=== PATIENT | female | born 1955 | race Caucasian/White ===

== ENCOUNTER 2021-01-15 16:52 | Outpatient (CLI) | payer MEDICARE, SELFPAY ==
--- NOTE | ~2021-01-15 | MR_ITS ---
EXAMINATION: MR knee LT wo con DATE: 01/15/2021 17:44 INDICATION: Left knee pain TECHNIQUE: Magnetic resonance imaging (MRI) of the left knee was performed without intravenous contra st. Sequences included coronal PD-weighted FSE, coronal PD-weighted FS FSE, sagittal T2-weighted FSE , sagittal PD-weighted FS FSE and axial PD weighted fat saturated FSE. COMPARISON: None. FINDINGS: Medial compartment: Medial meniscus is normal. Partial-thickness chondral ulceration and deep fissuring at the central we ightbearing medial femoral condyle with mild underlying subarticular edema. Cartilage at the medial t ibial plateau is relatively preserved. Lateral compartment: Lateral meniscus is normal. Partial-thickness chondral fissure at the central aspect of the lateral t ibial plateau. Partial thickness cartilage loss with smooth chondral surface along the lateral margin of the weightbearing lateral femoral condyle with small focus of subarticular edema anteriorly. Patellofemoral compartment: Partial-thickness chondral ulceration and deep fissuring along the patellar apical ridge and lateral side of the medial patellar facet with a couple tiny foci of subarticular edema. Deep fissuring with mild underlying cortical irregularity at the inferomedial aspect of the medial trochlea. Ligaments and tendons: Anterior and posterior cruciate ligaments are normal. The medial collateral ligament and fibular justin ateral ligament complex are normal. Patellar tendon is normal. Mild tendinopathy and prominent enthes ophytes at the patellar insertion of the distal quadriceps tendon. The visualized medial and lateral hamstring tendons as well as the iliotibial band are normal. Fluid: Small to moderate sized left knee joint effusion with some associated synovitis at the suprapatellar pouch. No loose osteochondral bodies identified. Likely partially ruptured large Ayala's cyst with st ill relatively distended portion of the cyst which extends approximately 6 cm cephalad along the post erior margin of the semimembranosus muscle and measures up to 4.6 x 1.7 cm in maximal transaxial dime nsions. Inferiorly the fluid appears nonloculated tracking along the superficial margin of the medial head of the gastrocnemius muscle. Osseous/other: Normal bone marrow signal aside from the previous noted regions of subarticular edema. No fracture or pathologic marrow replacing process. IMPRESSION: 1. 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 2. Small to moderate-sized left knee joint effusion and large partially ruptured Ayala's cyst at the popliteal fossa. 3. 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 Reviewed, dictated and finalized at location A. INSERTER IMPRESSION: 1. 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 2. Small to moderate-sized left knee joint effusion and large partially rupture d Ayala's cyst at the popliteal fossa. 3. Chronic enthesopathy at the patellar insertion of the distal quadriceps tend on.
== END 2021-01-15 16:53 | disposition home or self-care (01) ==
PROVIDERS: PCP Family Medicine; Visit Provider Orthopaedic Surgery
DX: M25.562 Pain in left knee (principal); M17.12 Unilateral primary osteoarthritis, left knee; M94.262 Chondromalacia, left knee; M25.462 Effusion, left knee; M71.22 Synovial cyst of popliteal space [Baker], left knee; M76.892 Other specified enthesopathies of left lower limb, excluding foot
CPT/HCPCS: 73721

== ENCOUNTER 2021-01-23 10:11 | Outpatient (CLI) | payer MEDICARE, SELFPAY ==
[2021-01-23 10:41] LABS: Basophils Absolute Auto 0.1 K/mm3 (0.0-0.1); Basophils Percent Auto 0.8 % (0.2-1.2); Eosinophils Absolute Auto 0.2 K/mm3 (0-0.3); Eosinophils Percent Auto 2.7 % (0-4.4); Hematocrit 36.4 % (37.0-47.0); Hemoglobin 11.7 g/dL (12.0-15.0); Immature Granulocyte Absolute 0.02 K/mm3 (0.00-0.031); Immature Granulocyte Percent A 0.3 % (0-0.5); Lymphocytes Absolute Auto 1.99 K/mm3 (0.9-3.2); Mean Corpuscular HGB Conc 32.1 g/dl (32-36); Mean Corpuscular Hemoglobin 30.2 pg (26-34); Mean Corpuscular Volume 93.8 fl (80-100); Mean Platelet Volume 10.9 fl (7.4-10.4); Monocytes Absolute Auto 0.5 K/mm3 (0.1-0.6); Monocytes Percent Auto 8.3 % (2.6-8.5); Neutrophils Absolute Auto 3.7 K/mm3 (1.3-6.7); Neutrophils Percent Auto 56.9 % (45.5-73.1); Platelet Count Result 231 k/mm3 (150-375); Red Blood Count 3.88 M/mm3 (4.2-5.4); Red Cell Distribution Width 14.3 % (11.5-14.5); White Blood Count 6.4 K/mm3 (4.5-10.0)
[2021-01-23 11:00] LABS: Rheumatoid Factor < 8.6 IU/ML (<12)
[2021-01-23 11:04] LABS: CRP < 0.5 mg/dL (<1.0); Uric Acid 4.4 mg/dL (2.5-7.5)
[2021-01-23 12:07] LABS: Erythrocyte Sedimentation Rate 18 mm/hr (0-20)
== END 2021-01-23 10:12 | disposition home or self-care (01) ==
LOC: ANHLAB 10:18
PROVIDERS: PCP Family Medicine; Visit Provider Orthopaedic Surgery
DX: M17.0 Bilateral primary osteoarthritis of knee (principal); M06.9 Rheumatoid arthritis, unspecified
CPT/HCPCS: 36415; 84550; 85025; 85652; 86038; 86039; 86140; 86430

== ENCOUNTER → 2021-04-22 08:31 | Outpatient (CLI) | payer MEDICARE, SELFPAY ==
--- NOTE | ~2021-04-22 | MR_ITS ---
EXAMINATION: MR knee LT wo con DATE: 04/22/2021 09:13 INDICATION: Left knee pain TECHNIQUE: Magnetic resonance imaging (MRI) of the left knee was performed without intravenous contra st. Sequences included coronal PD-weighted FSE, coronal PD-weighted FS FSE, sagittal T2-weighted FSE , sagittal PD-weighted FS FSE and axial PD weighted fat saturated FSE. COMPARISON: 01/15/2021 FINDINGS: Medial compartment: New complex tear at the mid to lateral aspect of the posterior horn of the medial meniscus which appe ars to include a radial component near the posterior root. Deep chondral ulceration along the anterio r to central weightbearing medial femoral condyle. A severe partial thickness cartilage loss with cho ndral surface regularity at the medial half of the medial tibial plateau. Small regions of eburnation with decreased signal intensity in the subchondral bone in the medial side of the medial tibial plat eau and anterior weightbearing medial femoral condyle. Lateral compartment: Lateral meniscus is normal. Unchanged small partial-thickness chondral fissure at the central aspect of the lateral tibial plateau. Mild partial thickness cartilage loss with smooth chondral surface michel ng the lateral margin of the weightbearing lateral femoral condyle. Prior subarticular edema has reso lved. Patellofemoral compartment: Partial-thickness chondral ulceration and deep fissuring along the patellar apical ridge and lateral side of the medial patellar facet. Chondral ulceration and deep fissuring again seen at the inferior aspect of the medial trochlea with minimal underlying cortical irregularity. Ligaments and tendons: Anterior and posterior cruciate ligaments are normal. The medial collateral ligament and fibular justin ateral ligament complex are normal. Patellar tendon is normal. Mild tendinopathy and large enthesophy odalis at the patellar insertion of the distal quadriceps tendon. The visualized medial and lateral hams tring tendons as well as the iliotibial band are normal. Fluid: Moderate to large left knee joint effusion with moderate synovitis at the suprapatellar pouch. No int ra-articular loose osteochondral bodies identified. There is a 13 x 9 x 6 mm loose body within a larg e Ayala's cyst which measures 8.4 x 3.7 x 1.9 cm. Osseous/other: Bone alignment is normal. No fracture or pathologic marrow replacing process. IMPRESSION: 1. New complex tear near the posterior root of the medial meniscus. 2. Interval progression of now moderate osteoarthritis in the medial compartment with increasing mode rate and high-grade chondromalacia. 3. No significant interval change in mild osteoarthritis in the medial and lateral compartments. 4. Moderate to large left knee joint effusion and large Ayala's cyst. 5. Chronic distal quadriceps enthesopathy. Reviewed, dictated and finalized at location A. IMPRESSION: 1. New complex tear near the posterior root of the medial meniscus. 2. Interval progression of now moderate osteoarthritis in the medial compartmen t with increasing moderate and high-grade chondromalacia. 3. No significant interval change in mild osteoarthritis in the medial and late ral compartments. 4. Moderate to large left knee joint effusion and large Ayala's cyst. 5. Chronic distal quadriceps enthesopathy.
== END ==
PROVIDERS: PCP Family Medicine; Visit Provider Orthopaedic Surgery
DX: M25.462 Effusion, left knee (principal); S83.232A Complex tear of medial meniscus, current injury, left knee, initial encounter; X58.XXXA Exposure to other specified factors, initial encounter
CPT/HCPCS: 73721

== ENCOUNTER 2023-03-14 12:24 | Emergency (ER) | payer MEDICARE, SELFPAY ==
[2023-03-14 12:39] VITALS: BP 142/92; PULSE 63; RESP 12; TEMP 36.4; O2SAT 100
--- NOTE | 2023-03-14 12:41 | ED.GENADULT ---
HPI - General Adult General Chief complaint: Upper Respiratory Infection Stated complaint: bilateral eye irritation,sorethroat Time Seen by Provider: 03/14/23 12:41 Source: patient Mode of arrival: ambulatory Limitations: no limitations History of Present Illness HPI narrative: 60-year-old female patient presents to the [facility] with complaints of drainage to the back the throat for the past 2-3 months. Patient states she has been using [id number] antihistamines and Mucinex. Patient states she just started with a mild intermittent nonproductive cough a couple of days ago. Also complaining of watery itchy eyes bilaterally. Denies fevers, body aches or chills. Denies any chest pain or shortness of breath. Related Data Home Medications Medication Instructions Recorded Confirmed famotidine 20 mg tablet 20 mg PO DAILY 12/18/20 03/14/23 levothyroxine 50 mcg capsule 50 mcg PO DAILY 12/18/20 03/14/23 metformin 500 mg tablet 500 mg PO DAILY 12/18/20 03/14/23 metoprolol succinate 25 mg 25 mg PO DAILY 12/18/20 03/14/23 tablet,extended release 24 hr pantoprazole 20 mg tablet,delayed 20 mg PO QAM 12/18/20 03/14/23 release pravastatin 20 mg tablet 20 mg PO DAILY 12/18/20 03/14/23 aspirin 81 mg tablet,delayed 81 mg PO DAILY 01/09/21 03/14/23 release (Adult Aspirin Regimen) Allergies Allergy/AdvReac Type Severity Reaction Status Date / Time codeine Allergy Mild sick Verified 03/14/23 12:45 Penicillins Allergy Mild sick Verified 03/14/23 12:45 Review of Systems Review of Systems: CONSTITUTIONAL: Denies fever, chills, or sweats. EYES: Denies visual changes, redness, or discharge. positive bilateral watery itchy eyes ENT: Positive rhinorrhea, congestion, positive drainage in back of throat. Denies sore throat or ear pain. CARDIOVASCULAR: Denies chest pain, palpitations, or edema. RESPIRATORY: Positive mild nonproductive cough , denies dyspnea. GASTROINTESTINAL: Denies abdominal pain, nausea, vomiting, or diarrhea. GENITOURINARY: Denies dysuria or hematuria. SKIN: Denies rash or itching. MUSCULOSKELETAL: Denies back pain, joint pain, or myalgia. NEUROLOGIC: Denies headache, numbness, or weakness. PSYCHIATRIC: Denies anxiety or depression. [facility] Past Medical History Medical History BMI 26.0-26.9,adult Osteoarthritis of left knee Surgical History Surgical History Hx of right knee surgery ACL reconstruction Social History Social History Smoking status: Never smoker Alcohol intake: current Living arrangements: with family Occupation/Education: occupation Additional occupation/education comments: [employer] Gender identity (if verbalized by the patient): Female Comments At the time of my signature I agree with nursing past medical history, surgical, social, and family history. There is no relevant family history pertinent to the presenting complaint. Exam Narrative: GENERAL: Well-appearing, well-nourished, and in no acute distress. HEAD: Normocephalic, atraumatic. EYES: PERRLA and EOMI. ENT: Nares with erythema and edema noted bilaterally, no rhinorrhea or epistaxis. Mucous membranes moist. posterior pharynx with no erythema, tonsillar enlargement, exudates or lesions present. Bilateral TMs are clear no erythema foreign bodies the canal. NECK: Supple. No lymphadenopathy CHEST: Clear to auscultation. No respiratory distress. HEART: Regular rate and rhythm. No murmur heard. Normal peripheral pulses. ABDOMEN: Soft, nontender, nondistended, normal active bowel sounds. EXTREMITIES: Normal range of motion. No edema. SKIN: Warm, dry, no rash. NEURO: No focal deficits. Alert and oriented x3. Course Course Level of Care: Express Care Visit Vital Signs Vital signs: Vital Signs Temperature 36.4 C 03/14/23 12:39 Pulse Ra
== END 2023-03-14 13:01 | disposition home or self-care (01) ==
PROVIDERS: Emergency Provider Nurse Practitioner Family; PCP Family Medicine
DX: J30.9 Allergic rhinitis, unspecified (principal); R09.82 Postnasal drip; H10.33 Unspecified acute conjunctivitis, bilateral; M17.12 Unilateral primary osteoarthritis, left knee
CPT/HCPCS: 99213; G0463